=== PATIENT | female | born 1975 | race Caucasian/White ===

== ENCOUNTER 2018-03-09 20:42 | Emergency (ER) | payer OTHER ==
[~2018-03-09] VITALS: Ht 149.9 cm; Wt 54.9 kg
[2018-03-09] MEDS ORDERED: HYDROCODONE/APAP 10MG-325MG TAB PO ONE (21:30)
[2018-03-09] MEDS ORDERED: CYCLOBENZAPRINE HCL 10 MG TAB PO ONE (21:30)
--- NOTE | 2018-03-09 21:54 | Procedure Report ---
DATE OF STUDY: NO DICTATION. 0 seconds. Job#: [id number]
--- NOTE | 2018-03-09 22:47 | Diagnostic Imaging Report ---
EXAM: HIP LEFT 2-3 VW (+/- PELVIS) INDICATION: Status post fall 2 days ago, posterior left hip pain COMPARISON: None FINDINGS: BONES: No acute fractures. JOINTS: No malalignment. SOFT TISSUES: Normal IMPRESSION: No evidence of a pelvic or left hip fracture. Signed by: Dr. Shaina Gonzalez M.D. on 03/09/2018 10:43 PM
[2018-03-09 22:54] VITALS: BP 139/82
== END 2018-03-09 23:10 | disposition home or self-care (01) ==
LOC: ER 20:42
DX: M25.552 Pain in left hip (principal); R26.2 Difficulty in walking, not elsewhere classified; W18.39XA Other fall on same level, initial encounter; Y93.E1 Activity, personal bathing and showering; Y92.002 Bathroom of unspecified non-institutional (private) residence as the place of occurrence of the external cause
CPT/HCPCS: 81025; 99283